=== PATIENT | female | born 1975 | race Two or more races ===

== ENCOUNTER 2024-04-02 10:14 | Outpatient (AMB) | payer BC, SELFPAY ==
--- NOTE | 2024-04-02 10:18 | A.OFFVIS_ITS ---
Intake Visit Reasons: New Pt - possible left achilles tendon tear Intake Note: Cee is a 49 year old female who presents today as a new patient for a evaluation of her left foot pain, possible tear. MRI was done on 03/16/24. Patient reports back in August she was just walking till she heard a pop in her achilles. She mentions she is feeling some soreness and sometimes it radiates up to her calf. Patient is going to PT and she does find it helping a little bit. Allergies No Known Allergies Allergy (Verified 04/02/24 10:25) [facility] New Pt - possible left achilles tendon tear: Details: 49-year-old female who presents in the office today, as a new patient, for an evaluation of left lower extremity pain. The patient was referred to the office on 03/12/24 with a partial tear of the left Achilles tendon. ? ? While in the office today, the patient reports in 08/2023 she was walking when she felt her left Achilles pop. She reports soreness that radiates up the left calf. She confirms attending physical therapy and feels it is giving mild relief. ? [facility] Social History (Updated 04/02/24 @ 10:26 by Keeley Dozier) Alcohol intake: never Patient Tobacco Use Status: Never used Tobacco Current occupational status: unemployed Review of Systems Const All systems reviewed & are unremarkable except as noted in HPI and below Physical Exam Const General: cooperative, healthy appearing and no acute distress Resp Effort & Inspection: normal respiratory effort and able to speak in complete sentences Cardio Rate: regular rate Peripheral pulses: Peripheral pulses 2+ throughout GI Palpation (GI): Soft to palpation Skin Lesions: no lesions Rashes: no rashes Extrem Other: Left foot and ankle normal to inspection. No ecchymosis, erythmea or ecchymosis. Negative russ's test. Able to dorsi/plantar flex. NVI. Assessment & Plan Assessment & Plan (1) Partial tear of left Achilles tendon: Code(s): S86.012A - Strain of left Achilles tendon, initial encounter Category: Medical Plan Ms. Ling is a 49-year-old female who presents in the office today, as a new patient, for an evaluation of left lower extremity pain. The patient was referred to the office on 03/12/24 with a partial tear of the left Achilles tendon. ? ? While in the office today, the patient reports in 08/2023 she was walking when she felt her left Achilles pop. She reports soreness that radiates up the left calf. She confirms attending physical therapy and feels it is giving mild relief.? ? The patient has attended 2 weeks of physical therapy, and I would like for her to continue to attend. Follow-up will be in 6 weeks, or sooner if needed. ? ? MRI of the left foot, obtained on 03/16/24 at [facility], revealed: ? 1.There is fusiform thickening of the mid Achilles tendon consistent with tendinopathy. There is a 3x6 mm interstitial partial tear at the mid Achilles (axial series 4, Image 33). No tendon defect or tendon retraction. No abnormality at the Achilles myotendinous junction. ? 2.No significant articulation abnormality is detected.? 3.There is mild plantar fasciitis thickening and mild nonspecific heel pad edema noted. ? Patient Instructions: Scribed by Edelmira Duke medical representative, for Celeste Arreola PA-C on 04/02/2024 at 10:44 am, EST.? Coding Level of Care Code New Pt Level 4 (06454) Diagnoses Partial tear of left Achilles tendon S86.012A
== END 2024-04-02 10:39 | disposition home or self-care (01) ==
PROVIDERS: Visit Provider Physician Assistant
DX: S86.012A Strain of left Achilles tendon, initial encounter (principal)
CPT/HCPCS: 99203

== ENCOUNTER → 2024-04-02 10:14 | Outpatient (BNVA) | payer BC, SELFPAY | PROVIDERS: Visit Provider Physician Assistant ==

== ENCOUNTER 2024-05-18 08:02 | Outpatient (AMB) | payer BC, SELFPAY ==
--- NOTE | 2024-05-18 08:18 | MHC.OFFVIS ---
Intake Visit Reasons: OV - left achilles tendon partial tear Intake Note: Cee is a 49 year old female who presents today for a follow up of her left achilles tendon partial tear. Patient reports she is feeling better after she did her physical therapy. She mentions that she is also doing the exercises at home as well. Allergies No Known Allergies Allergy (Verified 05/18/24 08:19) HPI HPI OV - left achilles tendon partial tear: Details: 49-year-old female who presents in the office today for a follow-up of left Achilles tendon partial tear. I last saw the patient in the office on 04/02/2024 when she reported attending physical therapy with mild relief. The patient was recommended to continue the physical therapy. While in the office today, the patient reports improved pain with physical therapy. She also mentions doing home exercises as well. [facility] Social History (Updated 04/02/24 @ 10:26 by Keeley Dozier) Alcohol intake: never Patient Tobacco Use Status: Never used Tobacco Current occupational status: unemployed Review of Systems Const All systems reviewed & are unremarkable except as noted in HPI and below Physical Exam Const General: cooperative, healthy appearing and no acute distress Resp Effort & Inspection: normal respiratory effort and able to speak in complete sentences Cardio Rate: regular rate Peripheral pulses: Peripheral pulses 2+ throughout GI Palpation (GI): Soft to palpation Skin Lesions: no lesions Rashes: no rashes Extrem Other: Left foot and ankle normal to inspection. No ecchymosis, erythmea or ecchymosis. Negative russ's test. Able to dorsi/plantar flex. NVI. Assessment & Plan Assessment & Plan (1) Partial tear of left Achilles tendon: Code(s): S86.012A - Strain of left Achilles tendon, initial encounter Category: Medical Plan Ms. Ling is a 49-year-old female who presents in the office today for a follow-up of left Achilles tendon partial tear. I last saw the patient in the office on 04/02/2024 when she reported attending physical therapy with mild relief. The patient was recommended to continue the physical therapy. While in the office today, the patient reports improved pain with physical therapy. She also mentions doing home exercises as well. The patient has completed physical therapy and believes she is back to baseline and able to perform activities without difficulty. At this time there is no additional orthopedic intervention needed. She may follow up will be PRN, or sooner if needed. Patient Instructions: Scribed by lCaudette Garcia, medical laboratory scientist, for Celeste Arreola PA-C on 05/18/24 at 8:28 am EST. Coding Level of Care Code Est Pt Level 3 (96070) Diagnoses Partial tear of left Achilles tendon S86.012A
== END 2024-05-18 08:46 | disposition home or self-care (01) ==
LOC: HO.HOS 08:03
PROVIDERS: Visit Provider Physician Assistant
DX: S86.012A Strain of left Achilles tendon, initial encounter (principal)
CPT/HCPCS: 99212